=== PATIENT | male | born 1975 | race Caucasian/White ===

== ENCOUNTER 2020-09-21 22:21 | Emergency (ER) | payer MEDICARE, MEDICAID ==
[~2020-09-21] VITALS: Ht 180.3 cm; Wt 111.6 kg
[2020-09-21] MEDS ORDERED: meTOproloL SUCCINATE 50 MG (TOPROL XL) TAB PO STA (22:40)
[2020-09-21] MEDS ORDERED: amLODIPine 5 MG (NORVASC) TAB PO STA (22:40)
--- NOTE | 2020-09-21 22:40 | ED General ---
General Chief Complaint: Abdominal/GI Problems Stated Complaint: AFIB,VOMITTING Source of Information: Patient History of Present Illness Date Seen by Provider: Sep 21, 2020 Time Seen by Provider: 22:22 Initial Comments 45-year-old male presenting with complaints of not feeling well and having a sensation that he just needed to lay down on the ground. He states this feels similar to when he had prior episodes of paroxysmal atrial fibrillation. He is a couple hours late on taking his evening dose of medications. He also is diabetic and has not checked his sugar this evening. He ate half of a [employer] sandwich prior to coming into the emergency department. He states he is feeling better on arrival to the ED. He denies any fever or chills, cough, shortness of breath, nausea or vomiting, diarrhea, abdominal pain, headache. He has had no recent trauma. He states that they were trying to drive home when the symptoms came on for him so rather than try to make it the rest of the way home, they stopped here to be evaluated. Allergies and Home Medications Allergies Coded Allergies: iodine (Verified Allergy, Unknown, 09/21/20) Patient Home Medication List Home Medication List Reviewed: Yes Review of Systems Review of Systems Constitutional: No chills, No diaphoresis, No fever; malaise EENTM: no symptoms reported Respiratory: no symptoms reported Cardiovascular: no symptoms reported Gastrointestinal: no symptoms reported Genitourinary: no symptoms reported Musculoskeletal: no symptoms reported Skin: no symptoms reported Psychiatric/Neurological: Anxiety, Other (felt like he "just needed to lay on the ground and collapse" which he reports was similar to when he had bouts of atrial fibrillation in the past) Hematologic/Lymphatic: No Symptoms Reported Past [id number] Hx Past Med/Social Hx: Reviewed Nursing Past Med/Soc Hx Past Medical History Respiratory: Yes COPD Cardiac: Yes Atrial Fibrillation, Hypertension Endocrine: Yes Diabetes, Non-Insulin dep Physical Exam Vital Signs Vital Signs - First Documented 09/21/20 22:37 Temp 36.2 Pulse 74 Resp 14 B/P (MAP) 171/90 (117) Pulse Ox 98 O2 Delivery Room Air Capillary Refill : Height, Weight, BMI Height: '" Weight: lbs. oz. kg; BMI Method: General Appearance: Obese HEENT: PERRL/EOMI, Pharynx Normal Neck: Non Tender, Supple Respiratory: Chest Non Tender, Lungs Clear, Normal Breath Sounds, No Accessory Muscle Use, No Respiratory Distress Cardiovascular: Regular Rate, Rhythm, Normal Peripheral Pulses Gastrointestinal: No Pulsatile Mass, Non Tender, Soft Rectal: Deferred Extremity: Normal Capillary Refill, No Pedal Edema Neurologic/Psychiatric: Alert, Oriented x3, No Motor/Sensory Deficits, Normal Mood/Affect, predatory animal exterminator II-XII Norm as Tested Skin: Normal Color, Warm/Dry Progress/Results/Core Measures Suspected Sepsis SIRS Temperature: Pulse: Respiratory Rate: Laboratory Tests 09/21/20 21:30: White Blood Count 12.8H Blood Pressure / Mean: Laboratory Tests 09/21/20 21:30: Creatinine 0.78, INR Comment 1.0, Platelet Count 291, Total Bilirubin 0.3 Results/Orders Lab Results Laboratory Tests Test 09/21/20 21:30 09/21/20 22:39 Range/Units White Blood Count 12.8 H 4.3-11.0 10^3/uL Red Blood Count 5.47 4.35-5.85 10^6/uL Hemoglobin 15.8 13.3-17.7 G/DL Hematocrit 47 40-54 % Mean Corpuscular Volume 87 80-99 FL Mean Corpuscular Hemoglobin 29 25-34 PG Mean Corpuscular Hemoglobin Concent 33 32-36 G/DL Red Cell Distribution Width 13.6 10.0-14.5 % Platelet Count 291 130-400 10^3/uL Mean Platelet Volume 9.4 7.4-10.4 FL Immature Granulocyte % (Auto) 0 % Neutrophils (%) (Auto) 61 42-75 % Lymphocytes (%) (Auto) 28 12-44 % Monocytes (%) (Auto) 8 0-12 % Eosinophils (%) (Auto) 2 0-10 % Basophils (%) (Auto) 1 0-10 % Neutrophils # (Auto) 7.7 1.8-7.8 X 10^3 Lymphocytes # (Auto) 3.6 1.0-4.0 X 10^3 Monocytes # (Auto) 1.0 0.0-1.0 X 10^3 Eosinophils # (Auto) 0.3 0.0-0.3 10^3/uL Basophils # (Auto) 0.1 0.0-0.1 10^3/uL Immature Granulocyte # (Auto) 0.0 0.0-0.1 10^3/uL Prothrombin Time 13.2 12.2-14.7 SEC INR Comment 1.0 0.8-1.4 Activated Partial Thromboplast Time 27 24-35 SEC Sodium Level 138 135-145 MMOL/L Potassium Level 3.9 3.6-5.0 MMOL/L Chloride Level 99 98-107 MMOL/L Carbon Dioxide Level 26 21-32 MMOL/L Anion Gap 13 5-14 MMOL/L Blood Urea Nitrogen 17 7-18 MG/DL Creatinine 0.78 0.60-1.30 MG/DL Estimat Glomerular Filtration Rate > 60 BUN/Creatinine Ratio 22 Glucose Level 170 H 70-105 MG/DL Calcium Level 9.3 8.5-10.1 MG/DL Corrected Calcium 8.5-10.1 MG/DL Magnesium Level 1.6 1.6-2.4 MG/DL Total Bilirubin 0.3 0.1-1.0 MG/DL Aspartate Amino Transf (AST/SGOT) 19 5-34 U/L Alanine Aminotransferase (ALT/SGPT) 25 0-55 U/L Alkaline Phosphatase 72 40-136 U/L Troponin I < 0.30 <0.30 NG/ML Pro-B-Type Natriuretic Peptide 32.3 <75.0 PG/ML Total Protein 7.9 6.4-8.2 GM/DL Albumin 4.9 H 3.2-4.5 GM/DL Lipase 25 8-78 U/L Glucometer 158 H 70-110 MG/DL My Orders Orders - HEAVENLY BOLDEN MD Ekg Tracing (09/21/20 22:35) Accucheck Stat ONCE (09/21/20 22:35) Cbc With Automated Diff (09/21/20 22:36) Magnesium (09/21/20 22:36) Comprehensive Metabolic Panel (09/21/20 22:36) Protime With Inr (09/21/20 22:36) Partial Thromboplastin Time (09/21/20 22:36) O2 (09/21/20 22:36) Monitor-Rhythm Ecg Trace Only (09/21/20 22:36) Ed Iv/Invasive Line Start (09/21/20 22:36) Lipase (09/21/20 22:36) Troponin I Fs (09/21/20 22:36) Probnp Fs (09/21/20 22:36) Metoprolol Succinate (Xl) Tab (Toprol Xl (09/21/20 22:40) Amlodipine Tablet (Norvasc Tablet) (09/21/20 22:40) Vital Signs/I&O 09/21/20 22:37 Temp 36.2 Pulse 74 Resp 14 B/P (MAP) 171/90 (117) Pulse Ox 98 O2 Delivery Room Air Capillary Refill : Progress Note #1: Progress Note Obtain Accu-Chek as patient was concerned that his sugar might be low. He had just eaten half of a [employer] sandwich 20 minutes prior to arrival in the ED. Pain electrocardiogram and basic labs to evaluate his electrolytes and cardiac enzymes. As patient states that he is 2+ hours overdue on his medications and his blood pressures elevated at 170s over 90-100 will order Metoprolol and Amlodipine for his night time dose while waiting on labs to come back. Placed on cardiac threat monitoring analyst as patient reports felt similar to prior episodes of paroxysmal atrial fibrillation. Currently he is in normal sinus rhythm with a heart rate in the 60s on telemetry monitoring. Differential diagnosis includes paroxysmal atrial fibrillation, hypoglycemia, hyperglycemia, myocardial infarction, pneumonia, heart failure with pleural effusion, electrolyte abnormality Progress Note #2: Progress Note labs are stable without acute significant abnormality. his cardiac enzymes are negative for acute injury to his heart. He has improved bp with taking amlodipine and metoprolol here in ED. will have him take his Losartan and other regular meds at home. Follow up with clinic for continued concerns. Return or seek medical care for evaluation sooner if having more problems ECG Initial ECG Impression Date: Sep 21, 2020 Initial ECG Impression Time: 22:37 Initial ECG Rate: 60 Initial ECG Rhythm: Normal Sinus Initial ECG Comparisson: No Previous ECG Available Comment Sinus rhythm with a heart rate of 60 bpm. TN interval [address] elevation. Nonspecific intraventricular conduction delay. QT interval 414 ms with a QTc interval of 414 ms. There is no prior tracing available for comparison. Departure Impression Primary Impression: Hypertension Qualified Codes: I10 - Essential (primary) hypertension Additional Impression: Paroxysmal atrial fibrillation Disposition: 01 HOME, SELF-CARE Condition: Stable Departure-Patient Inst. Decision time for Depature: 23:23 Referrals: MAYLIN ELIZABETH MD (PCP/Family) Primary Care Physician Patient Instructions: Atrial Fibrillation (DC), High Blood Pressure (DC), DASH Diet Add. Discharge Instructions: Continue on your regular medications and follow up with your regular providers All discharge instructions reviewed with patient and/or family. Voiced understanding. HEAVENLY BOLDEN MD Sep 21, 2020 22:40
[2020-09-21 22:49] LABS: HEMATOCRIT 47 % (40-54); HEMOGLOBIN 15.8 G/DL (13.3-17.7); LYMPHOCYTES % (AUTO) 28 % (12-44); MEAN CORPUSCULAR HEMOGLOBIN 29 PG (25-34); MEAN CORPUSCULAR HGB CONC 33 G/DL (32-36); MEAN CORPUSCULAR VOLUME 87 FL (80-99); MEAN PLATELET VOLUME 9.4 FL (7.4-10.4); MONOCYTES % (AUTO) 8 % (0-12); NEUTROPHILS % (AUTO) 61 % (42-75); PLATELET COUNT 291 10^3/uL (130-400); WHITE BLOOD COUNT 12.8 10^3/uL (4.3-11.0)
[2020-09-21 22:50] LABS: BASOPHILS # (AUTO) 0.1 10^3/uL (0.0-0.1); BASOPHILS % (AUTO) 1 % (0-10); EOSINOPHILS # (AUTO) 0.3 10^3/uL (0.0-0.3); EOSINOPHILS % (AUTO) 2 % (0-10); LYMPHOCYTES # (AUTO) 3.6 X 10^3 (1.0-4.0); NEUTROPHILS # (AUTO) 7.7 X 10^3 (1.8-7.8)
[2020-09-21 23:02] LABS: PROTHROMBIN TIME PATIENT 13.2 SEC (12.2-14.7)
[2020-09-21 23:19] LABS: SODIUM 138 MMOL/L (135-145)
[2020-09-21 23:20] LABS: ALANINE AMINOTRANSFERASE 25 U/L (0-55); ALBUMIN 4.9 GM/DL (3.2-4.5); ALKALINE PHOSPHATASE 72 U/L (40-136); BILIRUBIN,TOTAL 0.3 MG/DL (0.1-1.0); BUN/CREATININE RATIO 22; CALCIUM 9.3 MG/DL (8.5-10.1); CARBON DIOXIDE 26 MMOL/L (21-32); CHLORIDE 99 MMOL/L (98-107); CREATININE SERUM 0.78 MG/DL (0.60-1.30); GFR ESTIMATED > 60; GLUCOSE 170 MG/DL (70-105); LIPASE 25 U/L (8-78); MAGNESIUM 1.6 MG/DL (1.6-2.4); POTASSIUM 3.9 MMOL/L (3.6-5.0); TOTAL PROTEIN 7.9 GM/DL (6.4-8.2)
[2020-09-21 23:35] VITALS: BP 163/93
== END 2020-09-21 23:35 | disposition home or self-care (01) ==
LOC: ER FS 22:23
DX: I10 Essential (primary) hypertension (principal); I48.0 Paroxysmal atrial fibrillation; E11.9 Type 2 diabetes mellitus without complications; Z88.8 Allergy status to other drugs, medicaments and biological substances
CPT/HCPCS: 36415; 80053; 82962; 83690; 83735; 83880; 84484; 85025; 85610; 85730; 93005; 93041